=== PATIENT | female | born 1965 | race Caucasian/White ===

== ENCOUNTER 2018-05-04 08:37 | Emergency (ER) | payer OTHER ==
[2018-05-04] MEDS ORDERED: Ondansetron INJ* 2 MG/ML VIAL IV ONE (09:22)
[2018-05-04] MEDS ORDERED: Ketorolac INJ* 30 MG/ML 1 ML VIAL IV PUSH ONE (09:22)
--- NOTE | 2018-05-04 09:26 | UC ---
Headache HPI - HPI Summary HPI Summary: ONSET OF DIFFUSE HEADACHE 4 DAYS AGO. ALSO COMPLAINS OF FRONTAL SINUS PRESSURE AND NECK PAIN. IBUPROFEN HAS HELPED SLIGHTLY. HAS SENSITIVITY TO LIGHT. PATIENT HAS A HISTORY OF MIGRAINES AND IS ON INDERAL FOR PROPHYLAXIS. REPORTS SHE DOES NOT SLEEP WELL AND HAS HAD INCREASED STRESS OVER THE PAST FEW WEEKS. DENIES FEVER, COUGH, NASAL CONGESTION. - History Of Current Complaint Chief Complaint: UCHeadache Stated Complaint: SINUS ISSUE Time Seen by Provider: 05/04/18 09:08 Hx Obtained From: Patient Onset/Duration: Gradual Onset, Lasting Days, Still Present Currently Pain Is: Moderate Pain Intensity: 6 Pain Scale Used: 0-10 Numeric Timing: Constant Character: Throbbing Location of Headache: Diffuse Aggravating Factor(s): Bright Lights Allevating Factor(s): Nothing Associated Signs And Symptoms: Positive: Nausea, Sinus Pressure, Neck Pain. Negative: Dizziness, Seizure, Decreased LOC, Visual Changes - Allergies/Home Medications Allergies/Adverse Reactions: Allergies Allergy/AdvReac Type Severity Reaction Status Date / Time amoxicillin [From Augmentin] Allergy Diarrhea Verified 05/04/18 08:53 clavulanic acid Allergy Diarrhea Verified 05/04/18 08:53 [From Augmentin] clindamycin Allergy Rash Verified 05/04/18 08:53 doxycycline Allergy Rash Verified 05/04/18 08:53 gold Au 198 Allergy Unknown Verified 05/04/18 08:53 Reaction Details meperidine [From Demerol] Allergy Hives Verified 05/04/18 08:53 morphine Allergy Itching Verified 05/04/18 08:53 flu vaccine Allergy Anaphylatic Uncoded 05/04/18 08:53 Shock Home Medications: Home Medications Aspirin 81 mg CHEW TAB* 81 mg PO DAILY 05/04/18 [History Confirmed 05/04/18] Levothyroxine TAB* [Synthroid 100 MCG TAB*] 100 mcg PO DAILY 05/04/18 [History Confirmed 05/04/18] Omeprazole CAP* [Prilosec CAP* 20 MG] 40 mg PO DAILY 05/04/18 [History Confirmed 05/04/18] Propranolol LA CAP* [Inderal LA CAP*] 60 mg PO DAILY 05/04/18 [History Confirmed 05/04/18] Venlafaxine EXT RELEASE CAP* [Effexor Xr CAP*] 75 mg PO BEDTIME 05/04/18 [ History Confirmed 05/04/18] Venlafaxine EXT RELEASE CAP* [Effexor Xr CAP*] 150 mg PO DAILY 05/04/18 [ History Confirmed 05/04/18] PMH/Surg Hx/FS Hx/Imm Hx Endocrine History: Hypothyroidism GI/ History: Gastroesophageal Reflux Neurological History: Migraine Psychological History: Depression - Surgical History Surgical History: Yes Surgery Procedure, Year, and Place: 5 R foot/ leg surgeries. hysterectomy. t& a as a child. tubal ligation - Family History Known Family History: Positive: Hypertension - Social History Alcohol Use: Rare Substance Use Type: None Smoking Status (MU): Never Smoked Tobacco Review of Systems Constitutional: Negative ENT: Sinus Pain/Tenderness Respiratory: Negative Cardiovascular: Negative Gastrointestinal: Nausea Neurological: Headache All Other Systems Reviewed And Are Negative: Yes Physical Exam Triage Information Reviewed: Yes Appearance: Well-Appearing, Well-Nourished, Pain Distress - mild Vital Signs: Initial Vital Signs Temp 97.1 F 05/04/18 08:55 Pulse 77 05/04/18 08:55 Resp 18 05/04/18 08:55 BP 140/87 05/04/18 08:55 Pulse Ox 96 05/04/18 08:55 Vital Signs Reviewed: Yes Eyes: Positive: Conjunctiva Clear ENT: Positive: Hearing grossly normal, Pharynx normal Neck: Positive: Supple, Nontender, No Lymphadenopathy Respiratory Exam: Normal Cardiovascular Exam: Normal Abdomen Description: Positive: Soft Musculoskeletal: Positive: No Edema Neurological: Positive: Alert Psychological: Positive: Age Appropriate Behavior Skin: Negative: rashes Re-Evaluation - Re-Evaluation First Eval Re-Evaluation Time: 11:00 - NO CHANGE AFTER 1L NS, ZOFRAN AND TORADOL Change: Unchanged Headache Course/Dx - Course Course Of Treatment: NO CHANGE IN SYMPTOMS AFTER 1 L NORMAL SALINE, 4 MG ZOFRAN , [address] SCAN OF THE HEAD TO ENSURE NO INTRACRANIAL ABNORMALITY. PATIENT DECLINES. DISCUSSED TRANSFER TO THE ER FOR FURTHER EVALUATION. PATIENT DECLINES. WILL DC HOME WITH CONSERVATIVE MANAGEMENT AND CAREFUL OBSERVATION. LOW THRESHOLD FOR GOING TO ED IF SYMPTOMS WORSEN. - Differential Dx/Diagnosis Provider Diagnoses: HEADACHE Discharge - Sign-Out/Discharge Documenting (check all that apply): Patient Departure All imaging exams completed and their final reports reviewed: No Studies - Discharge Plan Condition: Stable Disposition: HOME Patient Education Materials: General Headache (ED) Referrals: Neeraj GOMES,Court Fritz [Primary Care Provider] - If Needed Additional Instructions: NO CHANGE AFTER 1 L NORMAL SALINE, 4 MG ZOFRAN, 30 MG TORADOL. YOU'VE DECLINED CT SCAN OF THE HEAD AND TRANSFER TO THE ED TODAY. REST, HYDRATE, OTC MEDS NEEDED FOR DISCOMFORT. LOW THRESHOLD FOR GOING TO THE ED IF YOU DEVELOP WORSENING PAIN, FEVER, VISUAL DISTURBANCE, DIZZINESS, NAUSEA OR ANY OTHER CONCERNING SYMPTOMS. - Billing Disposition and Condition Condition: STABLE Disposition: Home
[2018-05-04] MEDS ORDERED: NS 0.9% 1000 ML* 1,000 ML IV SCH (09:45)
[2018-05-04 11:05] VITALS: BP 115/72
== END 2018-05-04 11:15 | disposition home or self-care (01) ==
LOC: UCEAST 08:37
DX: R51 Headache (principal); J34.89 Other specified disorders of nose and nasal sinuses; M54.2 Cervicalgia; R11.0 Nausea; E03.9 Hypothyroidism, unspecified; K21.9 Gastro-esophageal reflux disease without esophagitis; F32.9 Major depressive disorder, single episode, unspecified; Z79.82 Long term (current) use of aspirin; Z88.1 Allergy status to other antibiotic agents; Z88.5 Allergy status to narcotic agent; Z88.0 Allergy status to penicillin; Z88.7 Allergy status to serum and vaccine
CPT/HCPCS: 96361; 96374; 96375; 99211; G0463; J1885; J2405

== ENCOUNTER 2018-08-21 13:46 | Emergency (ER) | payer BC, OTHER ==
[2018-08-21 15:22] VITALS: BP 134/74
--- NOTE | 2018-08-21 15:57 | UC ---
Respiratory Complaint HPI - HPI Summary HPI Summary: 1 WEEK OF SORE THROAT, SINUS PRESSURE, EAR FULLNESS, COUGH AND FATIGUE. HAS SUBJECTIVE FEVER INTERMITTENTLY. WORKS AT THE HOSPITAL. - History of Current Complaint Chief Complaint: UCGeneralIllness Stated Complaint: SINUS ISSUE COUGH Time Seen by Provider: 08/21/18 15:38 Hx Obtained From: Patient Onset/Duration: Gradual Onset, Lasting Days, Still Present Timing: Constant Severity Initially: Moderate Severity Currently: Moderate Pain Intensity: 2 Pain Scale Used: 0-10 Numeric Character: Cough: Nonproductive Aggravating Factors: Nothing Alleviating Factors: Nothing Associated Signs And Symptoms: Positive: Fever - SUBJECTIVE, Chills, URI, Nasal Congestion, Sinus Discomfort. Negative: Dyspnea - Allergies/Home Medications Allergies/Adverse Reactions: Allergies Allergy/AdvReac Type Severity Reaction Status Date / Time clindamycin Allergy Rash Verified 08/21/18 15:23 doxycycline Allergy Rash Verified 08/21/18 15:23 gold Au 198 Allergy Unknown Verified 08/21/18 15:23 Reaction Details meperidine [From Demerol] Allergy Hives Verified 08/21/18 15:23 morphine Allergy Itching Verified 08/21/18 15:23 amoxicillin [From Augmentin] AdvReac Severe Diarrhea Verified 08/21/18 15:23 clavulanic acid AdvReac Severe Diarrhea Verified 08/21/18 15:23 [From Augmentin] flu vaccine Allergy Anaphylatic Uncoded 08/21/18 15:23 Shock Home Medications: Home Medications Calcium Carbonate/Vitamin D3 [Calcium 600 + Vit D Tablet] 1 each PO DAILY [History Confirmed 08/21/18] DULoxetine DR CAP* [Cymbalta CAP*] 30 mg PO DAILY 08/21/18 [History Confirmed ] Fexofenadine (NF) [Emelina 180 (NF)] 180 mg PO DAILY 08/21/18 [History Confirmed 08/21/18] Gabapentin CAP(*) [Neurontin 100 mg CAP(*)] 100 mg PO BID 08/21/18 [History Confirmed 08/21/18] Ibuprofen TAB* [Motrin TAB* 600 MG] 600 mg PO Q6H PRN 08/21/18 [History Confirmed 08/21/18] Multivitamin [Multivitamins] 1 tab PO DAILY 08/21/18 [History Confirmed 08/21/18 ] [place]-3 Fatty Acids/Fish Oil [Fish Oil 1,000 mg Capsule] 2,000 mg PO DAILY 08/21 [History Confirmed 08/21/18] guaiFENesin [Mucinex] 600 mg PO PRN 08/21/18 [History] PMH/Surg Hx/FS Hx/Imm Hx - Additional Past Medical History Additional PMH: ALLERGIES Endocrine History: Hypothyroidism GI/ History: Gastroesophageal Reflux Neurological History: Migraine Psychological History: Depression - Surgical History Surgical History: Yes Surgery Procedure, Year, and Place: 5 R foot/ leg surgeries. hysterectomy. t& a as a child. tubal ligation. WISDOM TEETH - Family History Known Family History: Positive: Hypertension - Social History Alcohol Use: Rare Substance Use Type: None Smoking Status (MU): Never Smoked Tobacco Review of Systems All Other Systems Reviewed And Are Negative: Yes Constitutional: Positive: Fever, Fatigue ENT: Positive: Sore Throat, Ear Ache, Nasal Discharge, Sinus Congestion Respiratory: Positive: Cough Cardiovascular: Positive: Negative Gastrointestinal: Positive: Negative Musculoskeletal: Positive: Myalgia Neurological: Positive: Headache Physical Exam Triage Information Reviewed: Yes Appearance: Well-Appearing, No Pain Distress, Well-Nourished Vital Signs: Initial Vital Signs Temp 98.5 F 08/21/18 15:18 Pulse 80 08/21/18 15:18 Resp 16 08/21/18 15:18 BP 134/74 08/21/18 15:18 Pulse Ox 99 08/21/18 15:18 Laboratory Tests 08/21/18 15:54 Influenza A (Rapid) Negative Influenza B (Rapid) Negative Vital Signs Reviewed: Yes Eyes: Positive: Conjunctiva Clear ENT: Positive: Hearing grossly normal, Pharynx normal, TMs normal Neck: Positive: Supple, Nontender, No Lymphadenopathy Respiratory Exam: Normal Cardiovascular Exam: Normal Abdomen Description: Positive: Soft Musculoskeletal: Positive: No Edema Neurological: Positive: Alert Psychological: Positive: Age Appropriate Behavior Skin: Negative: Rashes UC Diagnostic Evaluation - Laboratory O2 Sat by Pulse Oximetry: 99 Respiratory Course/Dx - Differential Dx/Diagnosis Provider Diagnosis: Sinusitis Discharge - Sign-Out/Discharge Documenting (check all that apply): Patient Departure All imaging exams completed and their final reports reviewed: No Studies - Discharge Plan Condition: Stable Disposition: HOME Patient Education Materials: Sinusitis (ED) Referrals: Neeraj GOMES,Court Fritz [Primary Care Provider] - If Needed Additional Instructions: YOUR SYMPTOMS ARE LIKELY VIRALLY MEDIATED AND SHOULD RESOLVE ON THEIR OWN WITH TIME. NO INDICATION FOR ANTIBIOTICS AT PRESENT. REST, HYDRATE, OTC MEDS NEEDED. SEEK FOLLOW-UP IF YOU ARE NOT IMPROVING OVER THE NEXT 1-2 WEEKS. USE OTC AFRIN FOR NASAL CONGESTION. 2 SPRAYS IN EACH NOSTRIL TWICE DAILY NEEDED. DO NOT USE FOR MORE THAN 3-4 DAYS IN A ROW TO PREVENT DEVELOPING REBOUND CONGESTION. CALL THE NUMBER BELOW FOR ASSISTANCE IN ESTABLISHING WITH A PCP An additional resource available to assist in finding the appropriate physician for your health care needs is the [facility] ([facility]). You may contact them by calling [phone]. - Billing Disposition and Condition Condition: STABLE Disposition: Home
== END 2018-08-21 16:30 | disposition home or self-care (01) ==
LOC: UCEAST 13:46
DX: J32.9 Chronic sinusitis, unspecified (principal); Z88.1 Allergy status to other antibiotic agents; Z88.5 Allergy status to narcotic agent; Z88.8 Allergy status to other drugs, medicaments and biological substances; Z91.048 Other nonmedicinal substance allergy status; Z88.0 Allergy status to penicillin; Z88.7 Allergy status to serum and vaccine
CPT/HCPCS: 99211; G0463

== ENCOUNTER 2019-10-18 11:49 | Emergency (ER) | payer BC, OTHER ==
[2019-10-18 12:54] VITALS: BP 121/78
[2019-10-18 13:34] LABS: Influenza A Molecular Negative (Negative); Influenza B Molecular Negative (Negative)
--- NOTE | 2019-10-18 13:45 | UC ---
FLU HPI - HPI Summary HPI Summary: A COUPLE OF DAYS OF SORE THROAT, COUGH, BODY ACHES, HEADACHE, FATIGUE. NO FEVER. - History of Current Complaint Chief Complaint: UCGeneralIllness Stated Complaint: flu symptoms Time Seen by Provider: 10/18/19 12:53 Hx Obtained From: Patient Onset/Duration: Gradual Onset, Lasting Days, Still Present Severity Currently: Moderate Severity Initially: Moderate Pain Intensity: 4 Pain Scale Used: 0-10 Numeric Associated Signs & Symptoms: Positive: Myalgia, Cough, Sore Throat. Negative: Fever - Allergy/Home Medications Allergies/Adverse Reactions: Allergies Allergy/AdvReac Type Severity Reaction Status Date / Time clindamycin Allergy Rash Verified 10/18/19 12:44 doxycycline Allergy Rash Verified 10/18/19 12:44 gold Au 198 Allergy Unknown Verified 10/18/19 12:44 Reaction Details meperidine [From Demerol] Allergy Hives Verified 10/18/19 12:44 clavulanic acid AdvReac Severe Diarrhea Verified 10/18/19 12:44 [From Augmentin] morphine AdvReac Itching Verified 10/18/19 12:44 flu vaccine Allergy Anaphylatic Uncoded 10/18/19 12:44 Shock Home Medications: Home Medications Aspirin 81 mg CHEW TAB* 81 mg PO DAILY 05/04/18 [History Confirmed 10/18/19] Levothyroxine TAB* [Synthroid 100 MCG TAB*] 100 mcg PO DAILY 05/04/18 [History Confirmed 10/18/19] Omeprazole CAP (NF) [Prilosec CAP* 20 MG] 40 mg PO DAILY 05/04/18 [History Confirmed 10/18/19] Propranolol LA CAP* [Inderal LA CAP*] 60 mg PO DAILY 05/04/18 [History Confirmed 10/18/19] Venlafaxine EXT RELEASE CAP* [Effexor Xr CAP*] 150 mg PO DAILY 05/04/18 [ History Confirmed 10/18/19] Calcium Carbonate/Vitamin D3 [Calcium 600 + Vit D Tablet] 1 each PO DAILY [History Confirmed 10/18/19] DULoxetine DR CAP* [Cymbalta CAP*] 60 mg PO DAILY 08/21/18 [History Confirmed ] Gabapentin CAP(*) [Neurontin 100 mg CAP(*)] 300 mg PO TID 08/21/18 [History Confirmed 10/18/19] Ibuprofen TAB* [Motrin TAB* 600 MG] 600 mg PO Q6H PRN 08/21/18 [History Confirmed 10/18/19] Multivitamin [Multivitamins] 1 tab PO DAILY 08/21/18 [History Confirmed 10/18/19 ] [place]-3 Fatty Acids/Fish Oil [Fish Oil 1,000 mg Capsule] 2,000 mg PO DAILY 08/21 [History Confirmed 10/18/19] ALPRAZolam TAB* [Xanax TAB*] 0.25 mg PO TID PRN 12/14/18 [History Confirmed 12/03] Acetaminophen TAB* [Tylenol TAB*] 1,000 mg PO BID PRN 12/14/18 [History Confirmed 10/18/19] Ascorbic Acid TAB* [Vitamin C TAB*] 1,000 mg PO DAILY 12/14/18 [History Confirmed 10/18/19] Fluticasone NASAL SPRAY 50MCG* [Flonase NASAL SPRAY 50MCG*] 1 spray BOTH NARES DAILY 12/14/18 [History Confirmed 10/18/19] Simvastatin [Zocor] 40 mg PO BEDTIME 12/14/18 [History Confirmed 10/18/19] Zyflomend 2 cap PO DAILY PRN 12/14/18 [History Confirmed 10/18/19] metFORMIN* [Glucophage 500 MG TAB *] 500 mg PO BID 12/14/18 [History Confirmed 10/18/19] PMH/Surg Hx/FS Hx/Imm Hx Endocrine History: Hypothyroidism, Dyslipidemia - Surgical History Surgical History: Yes Surgery Procedure, Year, and Place: 5 foot/leg surgeries w/ Dr Cuevas: right ankle fx w/ ORIF, cleaning and debriding, removal of external fixator, fusion w / jamie/repair. partial [id number]. t&a as a child. PE tubes x7 as a child. tubal ligation 90's. WISDOM TEETH - Family History Known Family History: Positive: Hypertension - Social History Alcohol Use: Rare Substance Use Type: None Smoking Status (MU): Never Smoked Tobacco Review of Systems All Other Systems Reviewed And Are Negative: Yes Constitutional: Positive: Fatigue. Negative: Fever ENT: Positive: Sore Throat, Nasal Discharge Respiratory: Positive: Cough Cardiovascular: Positive: Negative Gastrointestinal: Positive: Negative Musculoskeletal: Positive: Myalgia Physical Exam Triage Information Reviewed: Yes Appearance: No Pain Distress, Well-Nourished, Ill-Appearing - FATIGUED Vital Signs: Initial Vital Signs Temp 97.6 F 10/18/19 12:48 Pulse 73 10/18/19 12:48 Resp 18 10/18/19 12:48 BP 121/78 10/18/19 12:48 Pulse Ox 98 10/18/19 12:48 Laboratory Tests 10/18/19 13:23 Influenza A (Rapid) Negative Influenza B (Rapid) Negative Vital Signs Reviewed: Yes Eyes: Positive: Conjunctiva Clear ENT: Positive: Hearing grossly normal, Pharynx normal, TMs normal Neck: Positive: Supple, Nontender, No Lymphadenopathy Respiratory Exam: Normal Cardiovascular Exam: Normal Abdomen Description: Positive: Soft Musculoskeletal: Positive: No Edema Neurological: Positive: Alert Psychological: Positive: Age Appropriate Behavior Skin: Negative: Rashes Flu Course/Dx - Course Course Of Treatment: FLU SWAB NEGATIVE. LIKELY VIRALLY MEDIATED SYMPTOMS THAT SHOULD RESOLVE ON THEIR OWN WITH TIME. REST, HYDRATE, OTC MEDS NEEDED. FOLLOW-UP IF NOT IMPROVING EXPECTED. NOTE FOR WORK PROVIDED. - Differential Dx/Diagnosis Provider Diagnosis: Flu-like symptoms Discharge ED - Sign-Out/Discharge Documenting (check all that apply): Patient Departure All imaging exams completed and their final reports reviewed: No Studies - Discharge Plan Condition: Stable Disposition: HOME Patient Education Materials: Viral Syndrome (ED) Forms: *Work Release Referrals: Miya Larose MD [Primary Care Provider] - If Needed Additional Instructions: FLU NEGATIVE. YOUR SYMPTOMS ARE STILL LIKELY VIRALLY MEDIATED AND SHOULD RESOLVE ON THEIR OWN WITH TIME. NO INDICATION FOR ANTIBIOTICS AT PRESENT. REST, HYDRATE, OTC MEDS NEEDED. SEEK FOLLOW-UP IF YOU ARE NOT IMPROVING OVER THE NEXT 1-2 WEEKS. USE OTC AFRIN FOR NASAL CONGESTION IF NEEDED. 2 SPRAYS IN EACH NOSTRIL TWICE DAILY NEEDED. DO NOT USE FOR MORE THAN 3-4 DAYS IN A ROW TO PREVENT DEVELOPING REBOUND CONGESTION. IF YOU ONLY USE IT ONCE DAILY YOU CAN EXTEND TO ABOUT 5 DAYS. - Billing Disposition and Condition Condition: STABLE Disposition: Home
== END 2019-10-18 14:10 | disposition home or self-care (01) ==
LOC: UCEAST 11:49
DX: R05 Cough (principal); J02.9 Acute pharyngitis, unspecified; M79.10 Myalgia, unspecified site; R51 Headache; R53.83 Other fatigue; E03.9 Hypothyroidism, unspecified; E78.5 Hyperlipidemia, unspecified; J34.89 Other specified disorders of nose and nasal sinuses; Z79.82 Long term (current) use of aspirin; Z79.899 Other long term (current) drug therapy; Z88.1 Allergy status to other antibiotic agents; Z91.09 Other allergy status, other than to drugs and biological substances; Z88.7 Allergy status to serum and vaccine; Z88.5 Allergy status to narcotic agent; Z88.0 Allergy status to penicillin; Z88.6 Allergy status to analgesic agent
CPT/HCPCS: 99211; G0463

== ENCOUNTER 2020-09-20 07:02 | Observation (INO) ==
[~2020-09-20 07:02] MED LIST: Buffered Lidocaine 1% SYRIN 1 ml INTRADERM ONE; Lactated Ringers 1000 ml BAG 1,000 ML IV SCH; Sodium Citrate/Citric Acid LIQ 15 ML UDC PO ONE
[2020-09-20] MEDS ORDERED: Sodium Citrate/Citric Acid LIQ 15 ML UDC ONE (07:22)
[2020-09-20] MEDS ORDERED: ceFAZolin 2 GM PREMIX 2 GM/50 ML BAG ONE (07:22)
[2020-09-20] MEDS ORDERED: Rocuronium 50 mg VIAL 10 mg/ml 5 ml VIAL (50 mg) ONE ×2 (07:50→10:49)
[2020-09-20] MEDS ORDERED: Midazolam 2 mg/2 ml VIAL 1 mg/ml 2 ml VIAL (2 mg) ONE (07:50)
[2020-09-20] MEDS ORDERED: Propofol 10 MG/ML 20 ML BTL ONE (07:50)
[2020-09-20] MEDS ORDERED: fentaNYL 250 mcg/5 ml 50 MCG/ML 5 ml VIAL (250 MCG) ONE (07:50)
[2020-09-20] MEDS ORDERED: Lidocaine 2% PF 5 ML VIAL ONE (07:50)
[2020-09-20] MEDS ORDERED: Bupivacaine 0.25% SDV 30 ML ONE ×2 (08:06→09:43)
[2020-09-20] MEDS ORDERED: Bacitracin INJECTION 50,000 UNITS ONE ×2 (08:06→09:43)
[2020-09-20] MEDS ORDERED: Lidocaine 1% w EPI 1:100,000 MDV 20 ML VIAL ONE ×2 (08:07→09:43)
[2020-09-20] MEDS ORDERED: Dexamethasone IV 4 MG/ML VIAL 1 ml VIAL ONE ×2 (10:38→12:18)
[2020-09-20] MEDS ORDERED: Ondansetron 4 mg VIAL 2 MG/ML 2 ml VIAL ONE ×2 (10:38→13:23)
[2020-09-20] MEDS ORDERED: Ondansetron 4 mg VIAL 2 MG/ML 2 ml VIAL IV PRN ×2 (11:02→12:50)
[2020-09-20] MEDS ORDERED: Phenylephrine IV 10 MG/ML 1 ml VIAL ONE (11:02)
[2020-09-20] MEDS ORDERED: DiMENhydriNATE IV 50 mg/ml 1 ml VIAL IV PUSH PRN (11:02)
[2020-09-20] MEDS ORDERED: diPHENhydraMINE IV 50 MG/ML 1 ml VIAL (BENADRYL) IV PRN (11:02)
[2020-09-20] MEDS ORDERED: Naloxone 0.4 mg VIAL 0.4 mg/ml 1 ml VIAL IV PRN (11:02)
[2020-09-20] MEDS ORDERED: Acetaminophen IV 1 GM/100ML 1,000 MG/100 ML VIAL IVPB PRN (11:02)
[2020-09-20] MEDS ORDERED: Phenylephrine 40 mcg/mL 10mL (400mcg) SYRINGE ONE (11:03)
[2020-09-20] MEDS ORDERED: Magnesium Hydroxide LIQ 30 ML UDC PO PRN (12:50)
[2020-09-20] MEDS ORDERED: Acetaminophen IV 1 GM/100ML 100 ML ONE (12:51)
[2020-09-20] MEDS ORDERED: Lactated Ringers 1000 ml BAG 1,000 ML IV SCH (13:00)
[2020-09-20] MEDS ORDERED: HYDROmorphone 0.5 MG/0.5 ML SYRINGE IV SLOW PU PRN (13:04)
[2020-09-20] MEDS ORDERED: HYDROmorphone 1 MG/1 ML SYRINGE ONE (13:28)
[2020-09-20] MEDS: HYDROmorphone 1 MG/1 ML SYRINGE IV PRN ×3 (13:32→13:50)
[2020-09-20] MEDS ORDERED: fentaNYL 100 mcg/2 ml 50 MCG/ML VIAL ONE (13:41)
[2020-09-20] MEDS: fentaNYL 100 mcg/2 ml 50 MCG/ML VIAL IV PRN ×2 (13:43→13:56)
[2020-09-20] MEDS ORDERED: Dextrose 50% Syringe 50 ml 25 GM/50 ML SYRINGE IV PUSH PRN (14:25)
[2020-09-20] MEDS: HYDROcodone/ACETAMIN 5/325 mg TAB PO PRN ×2 (17:14→22:05)
[2020-09-20] MEDS ORDERED: Phenol 1.4% Throat Spray 177 ml BTL TOPICAL PRN (17:42)
[2020-09-20] MEDS ORDERED: Fluticasone NASAL SPRAY 50MCG 16 gm SPRAY BTL BOTH NARES SCH (18:00)
[2020-09-20] MEDS ORDERED: Calcium (OSCAL) 500 mg TAB PO SCH ×2 (18:00→21:00)
[2020-09-20] MEDS ORDERED: Cholecalciferol (VIT D3) 1,000 unit TAB PO SCH (21:00)
[2020-09-20] MEDS ORDERED: DULoxetine DR 60 mg CAP PO SCH (21:00)
[2020-09-20] MEDS ORDERED: CMCS: Simvastatin 20 mg TAB (NF) PO SCH (21:00)
[2020-09-20] MEDS ORDERED: Vitamin THERAPEUTIC TAB PO SCH (21:00)
[2020-09-21] MEDS: HYDROcodone/ACETAMIN 5/325 mg TAB PO PRN ×2 (03:59→08:36)
[2020-09-21 08:37] VITALS: BP 128/65
[2020-09-21] MEDS ORDERED: Venlafaxine XR 75 mg PO SCH (09:00)
[2020-09-21] MEDS ORDERED: [UNRECOGNIZED DRUG - OTHER] PO SCH (09:00)
== END 2020-09-21 12:13 | disposition home or self-care (01) ==
LOC: OR 07:02 → SSU 14:59 → INTOOBSV 14:59
PROVIDERS: ADMIT Neurological Surgery; ATTEND Neurological Surgery